=== PATIENT | male | born 1970 | race African-American/Black ===

== ENCOUNTER 2022-02-09 18:33 | Emergency (ER) | payer OTHER ==
[~2022-02-09] VITALS: Ht 188 cm; Wt 115.0 kg
[2022-02-09] MEDS ORDERED: IBUPROFEN 400MG TABLET PO ONE (21:15)
[2022-02-09] MEDS ORDERED: ACETAMINOPHEN 325MG TABLET PO ONE (21:15)
[2022-02-09] MEDS ORDERED: AMLODIPINE 10MG TABLET PO ONE (21:15)
[2022-02-09] MEDS ORDERED: IBUP-2028 MT (23:15)
[2022-02-09 23:48] VITALS: BP 140/109
== END 2022-02-09 23:30 | disposition home or self-care (01) ==
LOC: ER 18:33
DX: B34.9 Viral infection, unspecified (principal); I10 Essential (primary) hypertension; Z20.822 Contact with and (suspected) exposure to COVID-19
CPT/HCPCS: 71045; 87426; 99284; C9803